=== PATIENT | male | born 1930 | race Caucasian/White ===

== ENCOUNTER 2018-04-14 10:56 | Inpatient (IN) | payer MEDICARE, MEDICAID ==
--- NOTE | 2018-04-14 11:34 | ED Physician Chart ---
ED Chief Complaint/HPI - Patient Information Date Seen:: 04/14/18 Time Seen:: 11:25 Chief Complaint:: anemia History of Present Illness:: Patient had blood drawn yesterday and the results returned today. Patient had a hemoglobin of 6 and a hematocrit of 19.1. Patient is sent here for transfusion. Allergies:: Allergies Allergy/AdvReac Type Severity Reaction Status Date / Time No Known Allergies Allergy Verified 04/14/18 11:22 Historian:: Patient, EMS Review:: Transfer documents Reviewed ED Review of Systems - Review of Systems General/Constitutional: No fever, No chills Skin: No skin lesions Head: No headache Eyes: No loss of vision ENT: No earache Neck: No neck pain, No swelling Cardio Vascular: No chest pain, No palpitations Pulmonary: No SOB GI: No nausea, No vomiting, No diarrhea G/U: No dysuria Musculoskeletal: No bone or joint pain, No back pain, No muscle pain Endocrine: No polyuria Psychiatric: Prior psych history Hematopoietic: No bruising Allergic/Immuno: No urticaria Neurological: No syncope ED Past Medical History - Past Medical History Past Medical History: Other (status post subdural hematoma; a fascia following subarachnoid hemorrhage; dysphagia) Family History: Heart disease, Diabetes Melitus, HTN Social History: Non Smoker, Other (formerly drank alcohol) Surgical History: other (prostate cancer; craniotomy) Psychiatricy History: Other Medication: Reviewed Family Medical History - Family Member Mother Hx Family Hypertension: Yes Hx Family Diabetes: Yes ED Physical Exam - Physical Examination General/Constitutional: Well-developed, well-nourished, Alert Other Gen/Cons comments:: Oriented to his name and his birthday Head: Atraumatic Eyes: Lids, conjuctiva normal, PERRL Skin: Nl inspection, No rash ENMT: External ears, nose nl, Nasal exam nl, Lips, teeth, gums nl, Oropharynx nl Neck: No nuchal rigidity Respiratory: Clear to Auscultation Cardio Vascular: RRR GI: No tenderness/rebounding/guarding, No organomegaly, No hernia Other Extremities comments:: Arthritis hands ED Labs/Radiology/EKG Results - Lab Results Results: Laboratory Results - last 24 hr 04/14/18 04/14/18 04/14/18 11:28 11:28 11:28 WBC 7.2 RBC 1.85 L Hgb 6.7 L* Hct 19.6 L* MCV 106.1 H MCH 36.0 H MCHC Differential 33.9 RDW 17.9 Plt Count 118 L MPV 6.0 Neutrophils % 54.9 Lymphocytes % 37.5 Monocytes % 6.9 Eosinophils % 0.1 Basophils % 0.6 PT 11.9 H INR 1.13 PTT (Actin FS) 25.2 L Sodium 136 Potassium 4.6 Chloride 104 Carbon Dioxide 24.3 Anion Gap 12.3 BUN 55 H Creatinine 1.1 Est GFR ( Amer) TNP Est GFR (Non-Af Amer) TNP BUN/Creatinine Ratio 50.0 Glucose 119 H Calcium 9.3 ED Assessment - Assessment General Assessment: Elevated BUNs suggested patient has had a upper GI bleed. I spoke to Dr. Caldwell and patient be admitted to [facility] for transfusion. ED Septic Shock - . Is Septic Shock (SBP<90, OR Lactate>4 mmol\L) present?: No ED Reassessment (Disposition) - Reassessment Reassessment Condition:: Unchanged - Diagnosis Diagnosis:: Anemia; elevated BUN; history of prostate cancer - Patient Disposition Admitted to:: Med/Surg Spoke to:: Matt Caldwell Admitting Medical Physician:: Matt Caldwell Condition at Disposition:: Stable, Unchanged
[2018-04-14 11:45] LABS: MEAN CORPUSCULAR HGB CONC 33.9 pg (28.0-36.0); PLATELET COUNT 118 Th/cmm (150-400); RED BLOOD COUNT 1.85 Mil/cmm (3.80-5.80); RED CELL DISTRIBUTION WIDTH 17.9 % (11.5-20.0); WHITE BLOOD COUNT 7.2 Th/cmm (4.8-10.8)
[2018-04-14 11:46] LABS: HEMOGLOBIN 6.7 gm/dL (12-16)
[2018-04-14 11:47] LABS: HEMATOCRIT 19.6 % (41.0-60); MEAN CELL VOLUME 106.1 fl (80-99)
[2018-04-14 11:57] LABS: ANION GAP 12.3 (7.0-16.0); BUN - UREA NITROGEN 55 mg/dL (7-25); CALCIUM SERUM 9.3 mg/dL (8.6-10.3); CARBON DIOXIDE 24.3 mEq/L (21.0-31.0); CHLORIDE 104 mEq/L (98-107); CREATININE - SERUM 1.1 mg/dL (0.7-1.3); GLUCOSE 119 mg/dL (70-105); POTASSIUM SERUM 4.6 mEq/L (3.5-5.1); SODIUM SERUM 136 mEq/L (136-145)
[2018-04-14 12:05] LABS: INR 1.13 (0.5-1.4); PROTHROMBIN TIME (TEST) 11.9 SECONDS (9.5-11.5)
[2018-04-14 12:20] LABS: BAND NEUTROPHILE 1 % (0-10); LYMPHOCYTE 42 % (20-50); MONOCYTE 6 % (2-10); NEUTROPHILS 51 % (40-80); PLATELET ESTIMATE SLIGHT DECREASED (NORMAL)
[2018-04-14] MEDS ORDERED: Sodium Chloride 0.9% 1,000 ML IV SCH ×2 (13:23→14:00)
[2018-04-14 13:42] VITALS: BP 101/49
[2018-04-14] MEDS: Ferrous Sulfate 325 MG TAB PO SCH (21:30)
[2018-04-15 06:20] LABS: ALB/GLOB RATIO 1.2 (1.0-1.8); ALBUMIN 3.2 gm/dL (4.2-5.5); ALKALINE PHOSPHATASE 88 U/L (34-104); ANION GAP 11.9 (7.0-16.0); BILIRUBIN,TOTAL 0.6 mg/dL (0.3-1.0); BUN - UREA NITROGEN 50 mg/dL (7-25); CALCIUM SERUM 9.1 mg/dL (8.6-10.3); CARBON DIOXIDE 22.4 mEq/L (21.0-31.0); CHLORIDE 105 mEq/L (98-107); GLUCOSE 104 mg/dL (70-105); POTASSIUM SERUM 4.3 mEq/L (3.5-5.1); SGOT 40 U/L (13-39); SGPT/ALT 51 U/L (7-52); SODIUM SERUM 135 mEq/L (136-145); TOTAL PROTEIN,SERUM 5.8 gm/dL (6.0-8.3)
[2018-04-15 06:22] LABS: HEMOGLOBIN 8.9 gm/dL (12-16); MEAN CELL VOLUME 96.5 fl (80-99); MEAN CORPUSCULAR HEMOGLOBIN 32.9 pg (27.0-31.0); PLATELET COUNT 88 Th/cmm (150-400); RED BLOOD COUNT 2.72 Mil/cmm (3.80-5.80); RED CELL DISTRIBUTION WIDTH 21.9 % (11.5-20.0); WHITE BLOOD COUNT 5.9 Th/cmm (4.8-10.8)
[2018-04-15 06:28] LABS: HEMATOCRIT 26.3 % (41.0-60)
[2018-04-15 06:55] LABS: BAND NEUTROPHILE 2 % (0-10); EOSINOPHIL 0 % (0-5); LYMPHOCYTE 36 % (20-50); MONOCYTE 5 % (2-10); NEUTROPHILS 57 % (40-80)
[2018-04-15 06:56] LABS: ANISOCYTOSIS 1+; BASOPHIL 0 % (0-3); PLATELET ESTIMATE DECREASED PLATELETS (NORMAL)
[2018-04-15] MEDS ORDERED: CORN STARCH PO SCH (07:30)
--- NOTE | 2018-04-15 08:47 | History and Physical ---
History of Present Illness - HPI Chief Complaint: anemia HPI: Blood was draw and showed an Hgb of 6.0. Patient was transfer to ER for blood transfusion. 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 with bone metastasis) Endocrine: Report: Diabetes Dermatology: Report: No Pertinent Hx - Past Surgical History Past Surgical History: Other (Craniotomy and Prostate surgery.) Family Medical History - Family Member Mother Hx Family Cancer: Yes Hx Family Hypertension: Yes Hx Family Diabetes: Yes Hx Family Seizures: Yes Social History Smoke: No Alcohol: None Drugs: None Lives: Group Home Domestic Violence: Negative - Medications Home Medications: Home Medication Medication Instructions Recorded Type Acetaminophen [Tylenol] 325 mg PO Q6HR PRN 04/14/18 History Amitriptyline [Elavil*] 5 mg HS 04/14/18 History Carvedilol [Coreg] 6.25 mg PO BID 04/14/18 History Equality Starch [Resource Thickenup] 1 each PO AC 04/14/18 History Ferrous Sulfate [Iron] 1 tab PO TID 04/14/18 History Levetiracetam [Keppra] 1,000 mg PO BID 04/14/18 History Potassium Chloride 20 meq PO DAILY 04/14/18 History Tamsulosin [Flomax] 0.4 mg PO DAILY 04/14/18 History - Allergies Allergies/Adverse Reactions: Allergies Allergy/AdvReac Type Severity Reaction Status Date / Time No Known Allergies Allergy Verified 04/14/18 11:22 Review of Systems - Review of Systems Constitutional: Report: Weakness, Malaise Eyes: Report: No Significant ENT: Report: No Significant Respiratory: Report: No Significant Cardiovascular: Report: No Significant Gastrointestinal: Report: No Significant Genitourinary: Report: No Significant Musculoskeletal: Report: No Significant Skin: Report: No Significant Neurological: Report: Weakness Physical Exam - Physical Exam HEENT: Report: Ears Nose Throat within normal limits Neck: Report: Within normal limits Cardiovascular Systems: Report: Regular, Rate and Rhythm Respiratory: Report: Breath Sounds are within normal limits Abdomen: Report: Non-tender to palpation Back: Report: Inspection of back is within normal limits. Extremities: Report: Non-tender to palpation. Skin: Report: Color of skin is within normal limits Neuro/Psych: Report: Disoriented to name time or place - Lab Results All Lab Results last 24 hours: Laboratory Results - last 24 hr 04/14/18 04/14/18 04/14/18 11:28 11:28 11:28 WBC 7.2 RBC 1.85 L Hgb 6.7 L* Hct 19.6 L* MCV 106.1 H MCH 36.0 H MCHC Differential 33.9 RDW 17.9 Plt Count 118 L MPV 6.0 Add Manual Diff YES Neutrophils % [employer] DEVELOPER Band Neutrophils % 1 Lymphocytes % [employer]LE [employer] DEVELOPER Monocytes % [employer]ION DEVELOPER Eosinophils % [employer]LE [employer]ION DEVELOPER Basophils % [employer] DEVELOPER Neutrophils (Manual) 51 Lymphocytes 42 Monocytes 6 Eosinophils Basophils Platelet Estimate SLIGHT DECREASED Anisocytosis Macrocytosis 1+ PT 11.9 H INR 1.13 PTT (Actin FS) 25.2 L Sodium 136 Potassium 4.6 Chloride 104 Carbon Dioxide 24.3 Anion Gap 12.3 BUN 55 H Creatinine 1.1 Est GFR ( Amer) TNP Est GFR (Non-Af Amer) TNP BUN/Creatinine Ratio 50.0 Glucose 119 H POC Glucose Calcium 9.3 Total Bilirubin AST ALT Alkaline Phosphatase Total Protein Albumin Globulin Albumin/Globulin Ratio Blood Type Antibody Screen Crossmatch 04/14/18 04/14/18 04/15/18 11:30 13:31 05:45 WBC 5.9 RBC 2.72 L Hgb 8.9 L Hct 26.3 L D MCV 96.5 MCH 32.9 H MCHC Differential 34.0 RDW 21.9 H Plt Count 88 L MPV 6.0 Add Manual Diff YES Neutrophils % Band Neutrophils % 2 Lymphocytes % Monocytes % Eosinophils % Basophils % Neutrophils (Manual) 57 Lymphocytes 36 Monocytes 5 Eosinophils 0 Basophils 0 Platelet Estimate DECREASED PLATELETS Anisocytosis 1+ Macrocytosis PT INR PTT (Actin FS) Sodium Potassium Chloride Carbon Dioxide Anion Gap BUN Creatinine Est GFR ( Amer) Est GFR (Non-Af Amer) BUN/Creatinine Ratio Glucose POC Glucose 113 H Calcium Total Bilirubin AST ALT Alkaline Phosphatase Total Protein Albumin Globulin Albumin/Globulin Ratio Blood Type A POSITIVE Antibody Screen NEGATIVE Crossmatch See Detail 04/15/18 05:45 WBC RBC Hgb Hct MCV MCH MCHC Differential RDW Plt Count MPV Add Manual Diff Neutrophils % Band Neutrophils % Lymphocytes % Monocytes % Eosinophils % Basophils % Neutrophils (Manual) Lymphocytes Monocytes Eosinophils Basophils Platelet Estimate Anisocytosis Macrocytosis PT INR PTT (Actin FS) Sodium 135 L Potassium 4.3 Chloride 105 Carbon Dioxide 22.4 Anion Gap 11.9 BUN 50 H Creatinine 1.0 Est GFR ( Amer) TNP Est GFR (Non-Af Amer) TNP BUN/Creatinine Ratio 50.0 Glucose 104 POC Glucose Calcium 9.1 Total Bilirubin 0.6 AST 40 H ALT 51 Alkaline Phosphatase 88 Total Protein 5.8 L Albumin 3.2 L Globulin 2.6 Albumin/Globulin Ratio 1.2 Blood Type Antibody Screen Crossmatch - Assessment Assessment: Patient is sleeping but arousable, in no acute distress. 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 - Plan Plan: Patient received 2 units of RBC now Hgb is 8.9. Patient will be send back to SNF, due that anemia improved, Patient is DC.
[2018-04-15] MEDS: Ferrous Sulfate 325 MG TAB PO SCH (09:46)
== END 2018-04-15 12:10 | DRG 722 ==
LOC: ER 10:56 → MSI 12:46
PROVIDERS: ADMIT General Practice; ATTEND General Practice
PROC: 30233N1 Transfusion of Nonautologous Red Blood Cells into Peripheral Vein, Percutaneous Approach (ICD-10-PCS; principal; 2018-04-14)
DX: C61 Malignant neoplasm of prostate (principal); E41 Nutritional marasmus; C79.51 Secondary malignant neoplasm of bone; D63.8 Anemia in other chronic diseases classified elsewhere; I50.9 Heart failure, unspecified; G40.909 Epilepsy, unspecified, not intractable, without status epilepticus; E11.9 Type 2 diabetes mellitus without complications; I25.10 Atherosclerotic heart disease of native coronary artery without angina pectoris; Z83.3 Family history of diabetes mellitus; Z82.49 Family history of ischemic heart disease and other diseases of the circulatory system; Z86.73 Personal history of transient ischemic attack (TIA), and cerebral infarction without residual deficits; Z79.899 Other long term (current) drug therapy
CPT/HCPCS: 36415-UA; 80048-TC; 80053-TC; 82948-90; 85007-TC; 85025-TC; 85610-TC; 85730-TC; 86850-TC; 86900-TC; 86901-TC; 86922-TC; P9016; Z7610